=== PATIENT | male | born 1955 | race Caucasian/White ===

== ENCOUNTER 2020-11-02 06:59 | Day surgery (SDC) | payer OTHER ==
[~2020-11-02] VITALS: Ht 172.7 cm; Wt 71.6 kg
[~2020-11-02 06:59] MED LIST: AMLO5 PO; FAMO20 PO; HYDACE5 PO; IBUP600 PO; LOSHYD100 PO; OXYACE5T PO; PRAV20 PO; VALS80 PO
--- NOTE | 2020-11-02 07:32 | NUR ---
History, Chart, Medications and Allergies reviewed before start of procedure. Patient confirms NPO status and agrees with scheduled surgery. Patient reports taking all of colon prep with clear results. Patient States Post-Procedure ride home has been arranged with his .
--- NOTE | 2020-11-02 08:13 | NUR ---
11/02/20 0813 Rama Lambert MONITOR INTACT WITH CONTINUOUS PULSE OXIMETRY AND INTERMITTENT BP. PATIENT DETERMINED TO BE ASA APPROPRIATE FOR PROPOFOL SEDATION PRIOR TO START OF PROCEDURE BY DR. STORY. 3-LEAD EKG REVIEWED WITH PHYSICIAN PRIOR TO START OF PROCEDURE.
--- NOTE | 2020-11-02 08:51 | NUR ---
Patient up to Ambulate independently. Gait steady. Discharge instructions reviewed with patient. Patient verbalizes understanding. Copy given to patient to take home. Patient States Post-Procedure ride home has been arranged. .Discharged via wheelchair to private car for ride home.
== END 2020-11-02 09:22 | disposition home or self-care (01) ==
LOC: ORSCMMR 06:59
PROVIDERS: Internal Medicine Gastroenterology
PROC: 0DBK8ZX Excision of Ascending Colon, Via Natural or Artificial Opening Endoscopic, Diagnostic (ICD-10-PCS; principal; 2020-11-02 08:00)
DX: Z12.11 Encounter for screening for malignant neoplasm of colon (principal); Z86.010 Personal history of colon polyps; D12.2 Benign neoplasm of ascending colon; K57.30 Diverticulosis of large intestine without perforation or abscess without bleeding; I10 Essential (primary) hypertension; E78.00 Pure hypercholesterolemia, unspecified; Z79.899 Other long term (current) drug therapy
CPT/HCPCS: 88305; J2704; J7120

== ENCOUNTER → 2023-04-06 | Outpatient (CLI) | payer MEDICARE | END | disposition home or self-care (01) | LOC: LAB SHORT 08:25 → LAB 08:25 | DX: R30.0 Dysuria (principal) | CPT/HCPCS: 87086 ==